=== PATIENT | female | born 1985 | race Two or more races ===

== ENCOUNTER 2023-03-22 17:50 | Emergency (ER) | payer OTHER ==
[~2023-03-22] VITALS: Ht 170.2 cm; Wt 63.5 kg
== END 2023-03-22 19:23 | disposition home or self-care (01) ==
LOC: ER 17:50
PROVIDERS: General Practice
DX: J06.9 Acute upper respiratory infection, unspecified (principal); Z20.822 Contact with and (suspected) exposure to COVID-19